=== PATIENT | female | born 1940 | race Caucasian/White ===

== ENCOUNTER 2017-11-29 12:28 | Inpatient (IN) ==
[2017-11-29] MEDS ORDERED: IOPAMIDOL 100 ML BOTTLE IV ONE (12:29)
[2017-11-29] MEDS ORDERED: HYDROmorphone 2 MG/ML VIAL IV PRN (12:42)
[2017-11-29] MEDS ORDERED: LACTATED RINGERS 1,000 ML IV ONE (12:42)
[2017-11-29] MEDS ORDERED: PROMETHAZINE 25 MG/ML VIAL IV ONE (12:42)
--- NOTE | 2017-11-29 12:45 | Emergency Department Note ---
Abdominal Pain HPI - General Chief Complaint: Abdominal Pain Stated Complaint: diffuse abdominal pain x 2.5 hours Time Seen by Provider: 11/29/17 12:38 Source: patient, EMS Mode of arrival: wheelchair Limitations: no limitations - History of Present Illness HPI Narrative: This patient had the sudden onset of diffuse abdominal pain 1 hour ago. She had a biopsy of her bladder last week and had a catheter in until this morning which she took before the onset of this pain. Perforated bladder now with leaking of urine is certainly a possibility. She does have associated nausea and vomiting. Pain is quite diffuse about the abdomen and she did have a bowel movement this morning. - Related Data Home Medications Medication Instructions Recorded Confirmed HYDROcodone/APAP 10/325MG [[place] 2 tab PO Q4 PRN 11/29/17 11/29/17 10-325Mg] Previous Rx's Medication Instructions Recorded albuterol sulfate 90 mcg/actuation 2 puff INHALATION Q6H PRN #1 each 08/17/17 breath activated powder inhaler vitamin B complex tablet 1 tab PO QDAY #1 tab 11/08/17 buspirone 15 mg tablet 15 mg PO BID #60 tab 11/09/17 diltiazem ER 120 mg 120 mg PO BID #60 cap 11/09/17 capsule,extended release 12 hr paroxetine 40 mg tablet 40 mg PO QDAY #30 tab 11/09/17 tamsulosin 0.4 mg capsule 0.4 mg PO QDAY #20 cap 11/25/17 Allergies Allergy/AdvReac Type Severity Reaction Status Date / Time codeine Allergy Unknown Unknown Verified 11/29/17 12:35 Review of Systems All systems ED: reviewed and negative except as stated. Abdominal Pain PMH - Past Medical History [facility] Narrative: Medical History (Last Reviewed 11/18/17 @ 10:39 by Anushka Florentino RN) Fibromyalgia (Acute) Back pain (Chronic) Thrush, oral (Acute) Urosepsis (Acute) Congestive heart failure (Acute) UTI (urinary tract infection) (Acute) Urinary tract infection (Acute) Osteopenia (Chronic) Inflammatory arthritis (Chronic) Chronic obstructive pulmonary disease (Chronic) Mass of parenchyma of lung (Chronic) Olecranon bursitis of right elbow (Resolved) Polyarthritis (Chronic) Vitamin D deficiency (Chronic 10/15/14) Tremor (Chronic 09/09/14) Sepsis (Chronic 11/19/14) Rheumatoid arthritis (Chronic 10/15/14) Osteoarthritis (Chronic) Postmenopausal related mood disorder (Chronic) Pain, joint, multiple sites (Chronic 09/09/14) Hypertension, essential (Chronic) Depression (Chronic) History of colonic polyps (Chronic) Chronic low back pain (Chronic 09/09/14) Asthma (Chronic) Generalized anxiety disorder (Chronic) Hypoxia (Acute) Diabetes mellitus, type II (Inactive) Past Surgical History (Last Reviewed 11/18/17 @ 10:39 by Anushka Florentino, SEJAL) History of repair of right rotator cuff (Chronic) History of hysterectomy (Chronic) History of bladder surgery (Chronic) Family History (Last Reviewed 11/18/17 @ 10:39 by Anushka Florentino, SEJAL) Father Alcohol abuse Sister Family history of malignant neoplasm of breast Mother Essential hypertension Cerebrovascular accident Medical history: Reports: arthritis, asthma, cancer (Bladder), COPD, DM, fibromyalgia, hypertension, osteoporosis, other (Tremor, lung mass) Psychiatric history: Reports: anxiety, depression - Social History Smoking status: Former smoker Alcohol use: Reports: Occasionally Drug use: Reports: none Physical Exam Limitations: no limitations General appearance: alert Head: atraumatic Eye: Present: normal appearance ENT: normal exam Neck: Present: normal inspection Chest: Present: normal inspection Respiratory: Present: normal lung sounds bilaterally Cardiovascular: Present: regular rate, normal rhythm, normal heart sounds Abdominal: Present: soft, tenderness, diminished bowel sounds. Absent: distention, guarding, rebound, rigidity Abdominal tenderness: Present: diffuse, moderate Neurological: Present: alert Psychiatric: Present: normal affect, normal mood Skin: Present: warm, dry, intact Course Vital Signs Temperature 97.2 F 11/29/17 12:30 Pulse Rate 81 11/29/17 12:30 Respiratory Rate 20 11/29/17 12:30 Blood Pressure 181/77 11/29/17 12:30 Pulse Oximetry (%) 88 L 11/29/17 12:30 Temperature 97.7 F 11/30/17 04:00 Pulse Rate 78 11/30/17 04:00 Respiratory Rate 12 11/30/17 04:00 Blood Pressure 156/78 11/30/17 04:00 Pulse Oximetry (%) 97 11/30/17 04:00 Abdominal Pain - MDM Narrative Medical decision making narrative: CT scan and lab work were unremarkable. I did discuss this case with Dr. Lezama who had nothing to offer. Dr. Akbar was kind enough to see the patient and admit her to the hospital. - Lab Data Lab results reviewed: Yes I reviewed the patient's lab results. Result diagrams: 11/30/17 04:49 11/30/17 04:49 Lab Results 11/29/17 11/29/17 11/29/17 Range/Units 12:55 12:55 12:55 WBC 14.7 H (4.5-11.0) K/mcL RBC 4.05 (4.00-5.20) M/mcL Hgb 11.9 L (12.0-15.0) g/dL Hct 36.4 (36.0-48.0) % MCV 89.8 (80.0-100.0) fL MCH 29.3 (26.0-34.0) pg MCHC 32.6 (31.0-36.0) g/dL RDW 15.9 H (11.5-14.5) % Plt Count 252 (140-440) K/mcL MPV 8.2 (7.4-10.4) fL Gran % 80.5 H (38.0-78.0) % Lymph % (Auto) 11.2 L (15.5-49.0) % Coal % (Auto) 5.0 (1.0-12.0) % Eos % (Auto) 3.2 (0.0-7.0) % Baso % (Auto) 0.1 (0.0-2.0) % Gran # 11.9 H (1.8-8.0) K/mcL Lymph # (Auto) 1.6 (1.5-4.8) K/mcL Coal # (Auto) 0.7 (0.1-0.9) K/mcL Eos # (Auto) 0.5 (0.0-0.7) K/mcL Baso # (Auto) 0 (0.0-0.3) K/mcL Sodium 139 (133-145) mmol/L Potassium 3.5 (3.3-5.1) mmol/L Chloride 100 (96-108) mmol/L Carbon Dioxide 28 (22-30) mmol/L Anion Gap 11.0 (8-16) BUN 17 (8-23) mg/dl Creatinine 0.9 (0.6-1.1) mg/dl GFR Calculation 61 Glucose 152 H (70-105) mg/dL Calcium 9.1 (8.6-10.4) mg/dl Total Bilirubin 0.3 (0.0-1.0) mg/dL AST 15 (0-37) U/l ALT 12 (0-40) U/l Alkaline Phosphatase 62 (39-117) U/L Troponin T < 0.01 (0-0.03) ng/ml NT-Pro-B Natriuret Pep (0-450) pg/ml Total Protein 7.1 (5.9-8.4) gm/dL Albumin 3.7 (3.2-5.2) gm/dL Globulin 3.4 (2.2-3.7) gm/dL Albumin/Globulin Ratio 1.1 (1.0-2.3) Lipase 21 (7-60) U/L Urine Color Urine Appearance Urine pH (5.0-9.0) Ur Specific [place] (1.000-1.035) Urine Protein (NEG) mg/dL Urine Glucose (UA) (NEG) mg/dL Urine Ketones (NEG) mg/dL Urine Occult Blood (<0.03) mg/dL Urine Nitrate (NEG) Urine Bilirubin (NEG) mg/dL Urine Urobilinogen (NEG) mg/dL Ur Leukocyte Esterase (NEG) /uL Urine RBC (0-1) /hpf Urine WBC (0-4) /hpf Ur Squamous Epith Cells (0-4) /hpf Urine Bacteria (0) /hpf Ur Culture Indicated? 11/29/17 11/29/17 Range/Units 12:55 14:15 WBC (4.5-11.0) K/mcL RBC (4.00-5.20) M/mcL Hgb (12.0-15.0) g/dL Hct (36.0-48.0) % MCV (80.0-100.0) fL MCH (26.0-34.0) pg MCHC (31.0-36.0) g/dL RDW (11.5-14.5) % Plt Count (140-440) K/mcL MPV (7.4-10.4) fL Gran % (38.0-78.0) % Lymph % (Auto) (15.5-49.0) % Coal % (Auto) (1.0-12.0) % Eos % (Auto) (0.0-7.0) % Baso % (Auto) (0.0-2.0) % Gran # (1.8-8.0) K/mcL Lymph # (Auto) (1.5-4.8) K/mcL Coal # (Auto) (0.1-0.9) K/mcL Eos # (Auto) (0.0-0.7) K/mcL Baso # (Auto) (0.0-0.3) K/mcL Sodium (133-145) mmol/L Potassium (3.3-5.1) mmol/L Chloride (96-108) mmol/L Carbon Dioxide (22-30) mmol/L Anion Gap (8-16) BUN (8-23) mg/dl Creatinine (0.6-1.1) mg/dl GFR Calculation Glucose (70-105) mg/dL Calcium (8.6-10.4) mg/dl Total Bilirubin (0.0-1.0) mg/dL AST (0-37) U/l ALT (0-40) U/l Alkaline Phosphatase (39-117) U/L Troponin T (0-0.03) ng/ml NT-Pro-B Natriuret Pep 341.3 (0-450) pg/ml Total Protein (5.9-8.4) gm/dL Albumin (3.2-5.2) gm/dL Globulin (2.2-3.7) gm/dL Albumin/Globulin Ratio (1.0-2.3) Lipase (7-60) U/L Urine Color Straw Urine Appearance Clear Urine pH 8.0 (5.0-9.0) Ur Specific [place] 1.018 (1.000-1.035) Urine Protein Neg (NEG) mg/dL Urine Glucose (UA) Negative (NEG) mg/dL Urine Ketones Neg (NEG) mg/dL Urine Occult Blood Neg (<0.03) mg/dL Urine Nitrate Neg (NEG) Urine Bilirubin Neg (NEG) mg/dL Urine Urobilinogen Neg (NEG) mg/dL Ur Leukocyte Esterase 75 A (NEG) /uL Urine RBC 5 H (0-1) /hpf Urine WBC 21 H (0-4) /hpf Ur Squamous Epith Cells < 1 (0-4) /hpf Urine Bacteria 0 (0) /hpf Ur Culture Indicated? Yes - Radiology Data Radiology results reviewed: Yes I reviewed the patient's radiology results. Disposition Pt seen by TELEPHONE DIRECTORY DISTRIBUTOR DRIVER/PA only: No Clinical Impression: Abdominal pain Disposition: Xfer As Inpt ([facility]) Condition: Fair
[2017-11-29] MEDS ORDERED: fentaNYL 100 MCG/2 ML VIAL IV PRN (13:02)
[2017-11-29 13:21] LABS: Basophils # (Auto) 0 K/mcL (0.0-0.3); Basophils % (Auto) 0.1 % (0.0-2.0); Eosinophils # (Auto) 0.5 K/mcL (0.0-0.7); Eosinophils % (Auto) 3.2 % (0.0-7.0); Granulocytes % (Auto) 80.5 % (38.0-78.0); Lymphocytes # (Auto) 1.6 K/mcL (1.5-4.8); Lymphocytes % (Auto) 11.2 % (15.5-49.0); Mean Cell Volume 89.8 fL (80.0-100.0); Mean Corpuscular HGB Conc 32.6 g/dL (31.0-36.0); Mean Corpuscular Hemoglobin 29.3 pg (26.0-34.0); Monocytes # (Auto) 0.7 K/mcL (0.1-0.9); Platelet Count 252 K/mcL (140-440); RBC 4.05 M/mcL (4.00-5.20); Red Cell Distribution Width 15.9 % (11.5-14.5)
[2017-11-29 13:41] LABS: ALT/SGPT 12 U/l (0-40); Albumin 3.7 gm/dL (3.2-5.2); Albumin/Globulin Ratio 1.1 (1.0-2.3); Alkaline Phosphatase 62 U/L (39-117); Blood Urea Nitrogen 17 mg/dl (8-23); Lipase 21 U/L (7-60)
--- NOTE | 2017-11-29 14:21 | Cat Scan Report ---
CLINICAL INFORMATION: , Pain. History of bladder carcinoma COMPARISON: 12/22/[address] TECHNIQUE: Following enteric contrast, 80 cc of Isovue-300 were injected intravenously, and 60 seconds later, 0.625 mm helical slices were obtained from the mid heart through the subtrochanteric regions. Following reconstruction, 2.5 mm sagittal, coronal and axial reformatted images were processed and reviewed at bone, lung and soft tissue windows. Five minutes later, 0.625 mm helical slices were obtained from the mid heart through the kidneys and viewed at soft tissue windows.The exam was performed using radiation dose optimization techniques including, but not limited to, automated exposure control, adjustment of the mA and/or kV according to patient size and use of iterative reconstruction technique. FINDINGS: Lung bases show chronic bronchitis and tubular bronchiectasis in the lower lobes. Moderate patchy interstitial and alveolar infiltrates are seen in the visualized lower lobes and inferior right middle lobe. These are new from the previous study may represent aspiration. There are no effusions. The visualized heart is mildly enlarged with very small pericardial effusion. Images through the abdomen show mild fatty change within the liver, but no focal hepatic lesions. The gallbladder and bile ducts, spleen, pancreas and both adrenal glands and aorta are normal in size, configuration and attenuation out focal lesion. Bilateral simple renal cysts are stable - both kidneys, upper collecting systems and ureters are otherwise normal. Images through the pelvis show the mass, previously arising from the left lateral wall of the urinary bladder, is now absent with only mild residual thickening of the bladder wall. Hysterectomy changes are noted. Small/moderate ascites is seen throughout the abdomen and pelvis. Small right inguinal hernia consisting of a portion of the cecum. Also small left inguinal hernia contains only minimal ascites. Sigmoid diverticulosis is noted. Several loops of small bowel in the left midabdomen and a straight thickening of the wall and plica circulares folds. This may artifactual related to underdistention, however. Bone windows show grade 1 L3-4 and L4-5 spondylolisthesis due to degenerative facet disease. Mild T11 compression fracture stable. Moderate T12 compression fractures new IMPRESSION: 1. The sessile mass, previously seen in the left lateral wall of the urinary bladder, is no longer apparent. There is only minimal focal fibrosis in this region. Presumably, this represents successfully treated bladder cancer. 2. Small/moderate ascites in the abdomen and pelvis - new from previous CT. Etiology uncertain. 3. Small bilateral inguinal hernias. The right contains a small portion of the cecum - no evidence of incarceration 4. Moderate infiltrates in both lower lobes with associated tubular bronchiectasis. Suspect aspiration. 5. Possible thickening the wall and plica circulares folds within a few bowel loops in the left midabdomen. This could also merely be artifact of underdistention. If more definitive evaluation is required consider CT enterography 6. Moderate T12 compression fracture new. Mild T11 compression fracture old and unchanged Interpreted and Authenticated by: Sabino Olmos 11/29/17
[2017-11-29 15:05] LABS: Appearance,Urine CLEAR; Bacteria,Urine 0 /hpf (0); Bilirubin,Urine NEG (NEG); Color,Urine STRAW; Glucose,Urine (UA) NEGATIVE (NEG); Leukocyte Esterase,Urine 75 /uL (NEG); Protein,Urine NEG (NEG); Specific Gravity,Urine 1.018 (1.000-1.035); Urine Blood NEG mg/dL (<0.03); Urine RBC 5 /hpf (0-1); Urine Squamous Epithelial Cell < 1 /hpf (0-4); Urine WBC 21 /hpf (0-4); Urobilinogen,Urine NEG (NEG)
[2017-11-29] MEDS ORDERED: ZOLPIDEM 5 MG TABLET PO PRN (16:34)
[2017-11-29] MEDS ORDERED: ONDANSETRON 4 MG/2 ML VIAL IV PRN (16:34)
[2017-11-29] MEDS ORDERED: ACETAMINOPHEN 325 MG TABLET PO PRN (16:34)
[2017-11-29] MEDS ORDERED: cefTRIAXone 1 GM in DEXTROSE 5% IN WATER 50 ML IV SCH (16:45)
--- NOTE | 2017-11-29 16:54 | General Surg History&Physical ---
History of Present Illness Patient information: Note initiated : 11/29/17 at 4:50 pm Service Date, if different from initiated Date: [] Patient: Sera Gore a 77 y/o F admitted on for diffuse abdominal pain x 2.5 hours. Chief Complaint: [abdominal pain] HPI: Ms. Gore is a 77 year old F who was admitted with diffuse abdominal pain. She also has mild leukocytosis. The patient is status post transurethral resection of the bladder tumor november 11. She had a Oscar catheter which was discontinued this morning. About 30 minutes after the Oscar catheter was discontinued she developed pain across her upper abdomen. She developed nausea but no vomiting. The pain then moved to her lower abdomen. She has no history of other GI or biliary or pancreatic problems. She states that after she pulled the catheter she did not void. She was catheterized in the emergency room and 400 cc of urine was removed. She complains of chills and sweats. Her white blood count is 14,700. CT of the abdomen shows a moderate amount of free fluid in the peritoneal cavity with the largest amount in the pelvis and at the base of the small bowel mesentery but also up along the gutters and over the liver. There are no other significant findings in the small bowel colon or mesentery. With the history given it is suggested that she have a bladder leak and after the Oscar catheter was removed she spilled urine and her peritoneal cavity which caused her symptoms. There is no other findings to explain this clear fluid which has the texture of water. She is admitted and will be started on antibiotics. Oscar catheter will be continued. If she remains stable she will continue with Oscar catheter. I will notify Dr. Sol of her admission tomorrow.. Review of Systems - Constitutional lethargy, night sweats, weakness - EENT Nose, mouth and throat: abnormal hearing, no disequilibrium, no headache(s), no vertigo - Cardiovascular dyspnea on exertion, no chest pain at rest, no leg edema, no pedal edema, no rapid heart rate, no syncope - Respiratory dyspnea on exertion, wheezing - Gastrointestinal abdominal pain, bloating, nausea, no vomiting - Genitourinary Genitourinary: difficulty urinating, pelvic pain, urinary hesitancy - Musculoskeletal abnormal gait, arthralgias, stiffness, no neck pain, no tingling - Integumentary no new lesions, no non-healing lesions, no pruritus, no rash - Neurological confusion, tremor(s), no dizziness, no headache(s) - Psychiatric anxiety, confusion, depression - Endocrine fatigue - Hematologic/Lymphatic no easy bleeding, no easy bruising, no lymphadenopathy - Allergic/Immunologic no tongue swelling, no throat swelling, no uticaria, no wheezing, no lip swelling Past History Past medical history: 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 Chronic obstructive lung disease Diabetes by history Hypertension Anxiety with depression Past surgical history: TURBT Abdominal hysterectomy Right rotator cuff repair Past family history: Mother age 72 due to alcoholism Father age 46 due to alcoholism Sister with cancer of the breast Hypertension and stroke Past social history: Lives independently [id number] tobacco use stopped 4 years ago Occasional alcohol use Denies drug use Medications and Allergies Home Medications Medication Instructions Recorded Confirmed Type albuterol sulfate 90 mcg/actuation 2 puff INHALATION Q6H PRN #1 each 08/17/17 Rx breath activated powder inhaler vitamin B complex tablet 1 tab PO QDAY #1 tab 11/08/17 11/22/17 Rx buspirone 15 mg tablet 15 mg PO BID #60 tab 11/09/17 11/22/17 Rx diltiazem ER 120 mg 120 mg PO BID #60 cap 11/09/17 11/22/17 Rx capsule,extended release 12 hr paroxetine 40 mg tablet 40 mg PO QDAY #30 tab 11/09/17 11/22/17 Rx hydrocodone 10 mg-acetaminophen 2 tab PO Q6H PRN #180 tab 11/22/17 Rx 325 mg tablet tamsulosin 0.4 mg capsule 0.4 mg PO QDAY #20 cap 11/25/17 Rx Allergies Allergy/AdvReac Type Severity Reaction Status Date / Time codeine Allergy Unknown Unknown Verified 11/29/17 12:35 Exam Temp Pulse Resp BP Pulse Ox 97.2 F 87 20 139/61 97 11/29/17 12:30 11/29/17 16:15 11/29/17 12:30 11/29/17 16:15 11/29/17 16:15 - General physical appearance well developed, well nourished, moderate distress, moderate pain, chronically ill - Eyes PERRL, normal ocular movement - ENT normal pinna, normal nares, normal mucosa, no hearing loss, no congestion, decreased hearing (Major bilateral neurosensory hearing loss) - Head Head exam IM: Present: atraumatic, normal inspection, normocephalic - Neck no masses, no bruits, trachea midline, no lymphadectomy, no venous distension - Cardiovascular Cardiovascular exam IM: Present: normal rate and rhythm, RRR, +S1, +S2. Absent : JVD, tachycardia - Respiratory normal expansion, normal respiratory effort, other ( course tubular breath sounds bilaterally with coarse wheezes and rhonchi) - Abdomen Abdomen: Present: soft, tender ( diffusely abdominal tenderness throughout more prominent in the right upper quadrant and hypogastric), bowel sounds Hernia: Present: none - Genitourinary Present: normal external genitalia - Integumentary Present: no rash, no growths, no abnormal pigmentation - Neurologic Present: normal coordination, normal sensation - Musculoskeletal Present: normal gait, normal posture - Psychiatric Present: oriented to time, oriented to person, oriented to place, speech is normal, memory intact Assessment and Plan (1) Abdominal pain Status: Acute (2) Acute urinary retention Oscar to dependent drainage Cover Rocephin 1 g IV daily Possible cystogram after discussion with Dr. Sol Status: Acute (3) Malignant neoplasm of posterior wall of bladder Status: Resolved (4) Chronic obstructive pulmonary disease Will continue on home medication after verifying dosage Status: Chronic Qualifiers: COPD type: emphysema Emphysema type: unspecified Qualified Code(s): J43.9 - Emphysema, unspecified (5) Depression Will continue on home medication Status: Chronic Qualifiers: Depression Type: unspecified Qualified Code(s): F32.9 - Major depressive disorder, single episode, unspecified (6) Hypertension, essential Status: Chronic
[2017-11-29] MEDS: cefTRIAXone 1 GM VIAL IV SCH (18:02)
[2017-11-29] MEDS: 0.9 % SODIUM CHLORIDE 1,000 ML IV SCH (18:02)
[2017-11-29] MEDS ORDERED: ALBUTEROL SULFATE 1 PUFF INHALER INH PRN (18:55)
[2017-11-29] MEDS: HYDROcodone/APAP 10/325MG TABLET PO PRN (20:28)
[2017-11-29] MEDS: DILTIAZEM 120 MG CAP.XL.24H PO SCH (20:28)
[2017-11-29] MEDS: busPIRone 15 MG TABLET PO SCH (20:28)
[2017-11-29] MEDS: DOCUSATE SODIUM 100 MG CAPSULE PO SCH (22:21)
[2017-11-29] MEDS: 0.9 % SODIUM CHLORIDE 10 ML SYRINGE IV SCH (22:21)
[2017-11-29] MEDS ORDERED: PROMETHAZINE 25 MG/ML VIAL ONE (22:26)
[2017-11-29] MEDS ORDERED: MEPERIDINE 50 MG/ML INJECTION ONE (22:26)
[2017-11-30] MEDS: 0.9 % SODIUM CHLORIDE 10 ML SYRINGE IV SCH ×3 (05:25→20:00)
[2017-11-30 05:40] LABS: Basophils # (Auto) 0 K/mcL (0.0-0.3); Basophils % (Auto) 0.3 % (0.0-2.0); Eosinophils # (Auto) 0.5 K/mcL (0.0-0.7); Eosinophils % (Auto) 3.6 % (0.0-7.0); Granulocytes % (Auto) 76.2 % (38.0-78.0); Lymphocytes # (Auto) 1.7 K/mcL (1.5-4.8); Lymphocytes % (Auto) 12.5 % (15.5-49.0); Mean Cell Volume 89.9 fL (80.0-100.0); Mean Corpuscular HGB Conc 33.4 g/dL (31.0-36.0); Monocytes % (Auto) 7.4 % (1.0-12.0); Platelet Count 264 K/mcL (140-440); RBC 3.77 M/mcL (4.00-5.20); Red Cell Distribution Width 15.5 % (11.5-14.5)
[2017-11-30 06:01] LABS: ALT/SGPT 11 U/l (0-40); Albumin 3.4 gm/dL (3.2-5.2); Albumin/Globulin Ratio 1.1 (1.0-2.3); Alkaline Phosphatase 59 U/L (39-117); Bilirubin,Direct < 0.2 mg/dL (0.0-0.3); Blood Urea Nitrogen 13 mg/dl (8-23); Gamma Glutamyl Transpeptidase 22 U/L (5-36); Uric Acid 4.8 mg/dL (2.5-8.0)
[2017-11-30] MEDS: HYDROcodone/APAP 10/325MG TABLET PO PRN ×3 (07:18→19:59)
[2017-11-30] MEDS: PANTOPRAZOLE 40 MG TABLET PO SCH (07:19)
[2017-11-30] MEDS ORDERED: ALBUTEROL SULFATE INHALATION PRN (07:27)
[2017-11-30 07:42] LABS: Erythrocyte Sedimentation Rate 34 mm/hr (0-20)
--- NOTE | 2017-11-30 08:49 | XRay Report ---
CLINICAL INFORMATION: Follow up infiltrate COMPARISON: 09/02/2017 FINDINGS: Mild cardiomegaly is unchanged. Mediastinum and pulmonary vessels are normal. Severe COPD changes again noted. Right basilar infiltrate has almost cleared. A moderate patchy infiltrate has developed in the left base. Scarring in the right midlung unchanged IMPRESSION: Moderate patchy infiltrate developing in the left base. Incompletely clearance of right basilar infiltrate since the comparison x-ray three months ago. Severe COPD Interpreted and Authenticated by: Sabino Olmos 11/30/17
[2017-11-30] MEDS ORDERED: TAMSULOSIN 0.4 MG CAPSULE PO SCH (09:00)
[2017-11-30] MEDS ORDERED: VITAMIN B COMPLEX PO SCH (09:00)
[2017-11-30] MEDS ORDERED: PAROXETINE HCL 40 MG PO SCH (09:00)
[2017-11-30] MEDS ORDERED: busPIRone 10 MG TABLET PO SCH (09:00)
[2017-11-30] MEDS ORDERED: DILTIAZEM 120 MG PO SCH (09:00)
[2017-11-30] MEDS: ENOXAPARIN 30 MG/0.3 ML SYRINGE SQ SCH (10:40)
[2017-11-30] MEDS: busPIRone 15 MG TABLET PO SCH ×2 (10:41→19:59)
[2017-11-30] MEDS: DOCUSATE SODIUM 100 MG CAPSULE PO SCH ×2 (10:41→20:00)
[2017-11-30] MEDS: VITAMIN B COMPLEX 1 CAPSULE PO SCH (10:41)
[2017-11-30] MEDS: PARoxetine 20 MG TABLET PO SCH (10:42)
[2017-11-30] MEDS: TAMSULOSIN 0.4 MG CAPSULE PO SCH (10:42)
[2017-11-30] MEDS: DILTIAZEM 120 MG CAP.XL.24H PO SCH ×2 (10:42→19:59)
[2017-11-30] MEDS: MEPERIDINE 50 MG/ML INJECTION IV PRN ×2 (10:43→22:06)
[2017-11-30] MEDS: PROMETHAZINE 25 MG/ML VIAL IV PRN ×2 (10:59→22:07)
[2017-11-30] MEDS: cefTRIAXone 1 GM VIAL IV SCH (11:06)
--- NOTE | 2017-11-30 11:34 | General Surgery Progress Note ---
Subjective Patient reports: feels better, pain is less, tolerating liquids well, flatus, nausea, afebrile Narrative: Note initiated : 11/30/17 at 11:31 am Service Date, if different from initiated Date: [] Patient: Sera Gore 77 y/o F admitted on 11/29/17 for Diffuse Abdominal Pain x 2.5 hours. Chief Complaint: [patient states that she feels better. She still has pain but it is more hypogastric and suprapubic. The major portion of her upper abdominal pain has decreased. She denies nausea at this time. Her urine remains clear.. Preliminary cultures are negative for growth from the urine. Discussed her situation with Dr. Sol and he suggests continuing the Oscar catheter for 2 weeks and he will follow her as an outpatient. She is advised that I will continue IV antibiotics until the final cultures are available and if they are negative she can be discharged home at that time.] Objective Temp Pulse Resp BP Pulse Ox 98.9 F 78 20 152/71 95 11/30/17 07:14 11/30/17 04:00 11/30/17 07:14 11/30/17 07:14 11/30/17 07:14 - Additional Data Intake & Output - Last 24 hours: Intake & Output 11/28/17 11/29/17 11/30/17 12/01/17 05:59 05:59 05:59 05:59 Intake Total 1100 / 1100 Output Total 2750 / 2750 Balance -1650 / -1650 Weight 130 lb 8 oz - General physical appearance moderate pain, chronically ill - Eyes PERRL, normal ocular movement - ENT normal pinna, normal nares, normal mucosa, no hearing loss, no congestion - Neck no masses, no bruits, trachea midline, no lymphadectomy, no venous distension - Respiratory normal expansion, normal respiratory effort, other (vestibular breath sounds bilaterally) - Cardiovascular Cardiovascular exam: Present: normal rate and rhythm, RRR, +S1, +S2. Absent: JVD, tachycardia - Abdomen tender ( hypogastric suprapubic tenderness with guarding; active bowel sounds), bowel sounds (present) - Integumentary no rash, no growths, no abnormal pigmentation - Neurologic normal coordination, normal sensation - Psychiatric other ( patient is intermittently confused but she is easily reoriented) - Labs 11/30/17 04:49 11/30/17 04:49 Diabetes panel 11/29/17 11/30/17 Range/Units 12:55 04:49 Sodium 139 142 (133-145) mmol/L Potassium 3.5 4.0 (3.3-5.1) mmol/L Chloride 100 102 (96-108) mmol/L Carbon Dioxide 28 29 (22-30) mmol/L BUN 17 13 (8-23) mg/dl Creatinine 0.9 0.8 (0.6-1.1) mg/dl Glucose 152 H 101 (70-105) mg/dL Calcium 9.1 8.9 (8.6-10.4) mg/dl AST 15 13 (0-37) U/l ALT 12 11 (0-40) U/l Alkaline Phosphatase 62 59 (39-117) U/L Total Protein 7.1 6.4 (5.9-8.4) gm/dL Albumin 3.7 3.4 (3.2-5.2) gm/dL Triglycerides 125 (<150) mg/dl Calcium panel 11/29/17 11/30/17 Range/Units 12:55 04:49 Calcium 9.1 8.9 (8.6-10.4) mg/dl Phosphorus 3.1 (2.7-4.5) mg/dL Albumin 3.7 3.4 (3.2-5.2) gm/dL Pituitary panel 11/29/17 11/30/17 Range/Units 12:55 04:49 Sodium 139 142 (133-145) mmol/L Potassium 3.5 4.0 (3.3-5.1) mmol/L Chloride 100 102 (96-108) mmol/L Carbon Dioxide 28 29 (22-30) mmol/L BUN 17 13 (8-23) mg/dl Creatinine 0.9 0.8 (0.6-1.1) mg/dl Glucose 152 H 101 (70-105) mg/dL Calcium 9.1 8.9 (8.6-10.4) mg/dl Adrenal panel 11/29/17 11/30/17 Range/Units 12:55 04:49 Sodium 139 142 (133-145) mmol/L Potassium 3.5 4.0 (3.3-5.1) mmol/L Chloride 100 102 (96-108) mmol/L Carbon Dioxide 28 29 (22-30) mmol/L BUN 17 13 (8-23) mg/dl Creatinine 0.9 0.8 (0.6-1.1) mg/dl Glucose 152 H 101 (70-105) mg/dL Calcium 9.1 8.9 (8.6-10.4) mg/dl Total Bilirubin 0.3 0.6 (0.0-1.0) mg/dL AST 15 13 (0-37) U/l ALT 12 11 (0-40) U/l Alkaline Phosphatase 62 59 (39-117) U/L Total Protein 7.1 6.4 (5.9-8.4) gm/dL Albumin 3.7 3.4 (3.2-5.2) gm/dL Assessment and Plan (1) Abdominal pain Status: Acute Assessment and plan: We'll continue Oscar catheter decompression of the bladder. No further intervention is indicated at this time Current Visit: Yes (2) Acute urinary retention Status: Acute Assessment and plan: We will do long-term Oscar catheter decompression of the bladder Current Visit: No (3) Malignant neoplasm of posterior wall of bladder Status: Resolved Current Visit: No (4) Chronic obstructive pulmonary disease Status: Chronic Current Visit: No (5) Depression Status: Chronic Current Visit: No (6) Hypertension, essential Status: Chronic Current Visit: No - Time Spent With Patient Total time spent is greater than 50% in coordination of care (as documented) at patient's floor/unit and/or counseling patient:
[2017-11-30] MEDS: 0.9 % SODIUM CHLORIDE 1,000 ML IV SCH (14:01)
[2017-12-01] MEDS: 0.9 % SODIUM CHLORIDE 10 ML SYRINGE IV SCH ×3 (05:11→20:37)
[2017-12-01 05:39] LABS: Basophils # (Auto) 0.1 K/mcL (0.0-0.3); Basophils % (Auto) 0.7 % (0.0-2.0); Eosinophils # (Auto) 0.8 K/mcL (0.0-0.7); Eosinophils % (Auto) 10.1 % (0.0-7.0); Granulocytes % (Auto) 56.4 % (38.0-78.0); Lymphocytes # (Auto) 1.9 K/mcL (1.5-4.8); Lymphocytes % (Auto) 24.1 % (15.5-49.0); Mean Cell Volume 90.1 fL (80.0-100.0); Mean Corpuscular HGB Conc 32.7 g/dL (31.0-36.0); Mean Corpuscular Hemoglobin 29.5 pg (26.0-34.0); Monocytes # (Auto) 0.7 K/mcL (0.1-0.9); Monocytes % (Auto) 8.7 % (1.0-12.0); Platelet Count 251 K/mcL (140-440); RBC 3.74 M/mcL (4.00-5.20); Red Cell Distribution Width 15.3 % (11.5-14.5)
[2017-12-01 06:25] LABS: ALT/SGPT 9 U/l (0-40); Albumin 3.3 gm/dL (3.2-5.2); Alkaline Phosphatase 58 U/L (39-117); Bilirubin,Direct < 0.2 mg/dL (0.0-0.3); Blood Urea Nitrogen 11 mg/dl (8-23); Gamma Glutamyl Transpeptidase 23 U/L (5-36); Uric Acid 4.7 mg/dL (2.5-8.0)
[2017-12-01] MEDS: PANTOPRAZOLE 40 MG TABLET PO SCH (08:12)
[2017-12-01] MEDS: PARoxetine 20 MG TABLET PO SCH (10:10)
[2017-12-01] MEDS: VITAMIN B COMPLEX 1 CAPSULE PO SCH (10:10)
[2017-12-01] MEDS: DOCUSATE SODIUM 100 MG CAPSULE PO SCH ×2 (10:10→20:37)
[2017-12-01] MEDS: TAMSULOSIN 0.4 MG CAPSULE PO SCH (10:11)
[2017-12-01] MEDS: DILTIAZEM 120 MG CAP.XL.24H PO SCH ×2 (10:11→20:37)
[2017-12-01] MEDS: busPIRone 15 MG TABLET PO SCH ×2 (10:11→20:37)
[2017-12-01] MEDS: ENOXAPARIN 30 MG/0.3 ML SYRINGE SQ SCH (10:11)
[2017-12-01] MEDS: HYDROcodone/APAP 10/325MG TABLET PO PRN ×3 (11:00→20:38)
[2017-12-01] MEDS: cefTRIAXone 1 GM VIAL IV SCH (12:55)
[2017-12-01] MEDS: 0.9 % SODIUM CHLORIDE 1,000 ML IV SCH (13:26)
--- NOTE | 2017-12-01 16:32 | General Surgery Progress Note ---
Subjective Patient reports: still having pain, pain is less, bowel movement, afebrile Narrative: Note initiated : 12/01/17 at 4:31 pm Service Date, if different from initiated Date: [] Patient: Sera Gore 77 y/o F admitted on 11/29/17 for Diffuse Abdominal Pain x 2.5 hours. Chief Complaint: [patient is slowly improving. She asked for more solid food. Her urine remains clear. She remains afebrile. White blood count is down to 7.9.] Objective Temp Pulse Resp BP Pulse Ox 97.8 F 79 16 169/75 93 12/01/17 08:00 12/01/17 04:00 12/01/17 08:00 12/01/17 08:00 12/01/17 08:00 - Additional Data Intake & Output - Last 24 hours: Intake & Output 11/29/17 11/30/17 12/01/17 12/02/17 05:59 05:59 05:59 05:59 Intake Total 1100 / 1100 2229 / 2229 1000 / 1000 Output Total 2750 / 2750 3300 / 3300 Balance -1650 / -1650 -1071 / -1071 1000 / 1000 Weight 130 lb 8 oz 131 lb 131 lb - General physical appearance well developed, well nourished, moderate distress, moderate pain - Eyes PERRL - ENT decreased hearing - Neck no masses, no bruits, trachea midline, no lymphadectomy, no venous distension - Respiratory other (course tubular breath sounds bilaterally) - Cardiovascular Cardiovascular exam: Present: normal rate and rhythm, RRR, +S1, +S2. Absent: JVD - Abdomen soft, tender ( moderate tenderness in periumbilical area and hypogastrium; good active bowel sounds) - Integumentary no rash, no growths, no abnormal pigmentation - Neurologic normal coordination, normal sensation - Musculoskeletal normal gait, normal posture - Psychiatric oriented to time, oriented to person, oriented to place, speech is normal, memory intact - Labs 12/02/17 04:44 12/02/17 04:44 Diabetes panel 12/01/17 Range/Units 04:22 Sodium 140 (133-145) mmol/L Potassium 4.3 (3.3-5.1) mmol/L Chloride 103 (96-108) mmol/L Carbon Dioxide 27 (22-30) mmol/L BUN 11 (8-23) mg/dl Creatinine 0.7 (0.6-1.1) mg/dl Glucose 91 (70-105) mg/dL Calcium 9.0 (8.6-10.4) mg/dl AST 13 (0-37) U/l ALT 9 (0-40) U/l Alkaline Phosphatase 58 (39-117) U/L Total Protein 6.5 (5.9-8.4) gm/dL Albumin 3.3 (3.2-5.2) gm/dL Triglycerides 96 (<150) mg/dl Calcium panel 12/01/17 Range/Units 04:22 Calcium 9.0 (8.6-10.4) mg/dl Phosphorus 3.2 (2.7-4.5) mg/dL Albumin 3.3 (3.2-5.2) gm/dL Pituitary panel 12/01/17 Range/Units 04:22 Sodium 140 (133-145) mmol/L Potassium 4.3 (3.3-5.1) mmol/L Chloride 103 (96-108) mmol/L Carbon Dioxide 27 (22-30) mmol/L BUN 11 (8-23) mg/dl Creatinine 0.7 (0.6-1.1) mg/dl Glucose 91 (70-105) mg/dL Calcium 9.0 (8.6-10.4) mg/dl Adrenal panel 12/01/17 Range/Units 04:22 Sodium 140 (133-145) mmol/L Potassium 4.3 (3.3-5.1) mmol/L Chloride 103 (96-108) mmol/L Carbon Dioxide 27 (22-30) mmol/L BUN 11 (8-23) mg/dl Creatinine 0.7 (0.6-1.1) mg/dl Glucose 91 (70-105) mg/dL Calcium 9.0 (8.6-10.4) mg/dl Total Bilirubin 0.4 (0.0-1.0) mg/dL AST 13 (0-37) U/l ALT 9 (0-40) U/l Alkaline Phosphatase 58 (39-117) U/L Total Protein 6.5 (5.9-8.4) gm/dL Albumin 3.3 (3.2-5.2) gm/dL Assessment and Plan (1) Abdominal pain Status: Acute Assessment and plan: We'll continue Oscar catheter decompression of the bladder. No further intervention is indicated at this time Current Visit: Yes (2) Acute urinary retention Status: Acute Assessment and plan: We will do long-term Oscar catheter decompression of the bladder Current Visit: No (3) Chronic obstructive pulmonary disease Status: Chronic Current Visit: No (4) Depression Status: Chronic Current Visit: No (5) Hypertension, essential Status: Chronic Current Visit: No - Time Spent With Patient Total time spent is greater than 50% in coordination of care (as documented) at patient's floor/unit and/or counseling patient:
[2017-12-02 06:54] LABS: Basophils # (Auto) 0.1 K/mcL (0.0-0.3); Basophils % (Auto) 0.8 % (0.0-2.0); Eosinophils # (Auto) 0.8 K/mcL (0.0-0.7); Eosinophils % (Auto) 7.9 % (0.0-7.0); Granulocytes % (Auto) 60.3 % (38.0-78.0); Lymphocytes # (Auto) 2.1 K/mcL (1.5-4.8); Lymphocytes % (Auto) 21.7 % (15.5-49.0); Mean Cell Volume 90.2 fL (80.0-100.0); Mean Corpuscular HGB Conc 33.4 g/dL (31.0-36.0); Mean Corpuscular Hemoglobin 30.1 pg (26.0-34.0); Monocytes # (Auto) 0.9 K/mcL (0.1-0.9); Monocytes % (Auto) 9.3 % (1.0-12.0); Platelet Count 289 K/mcL (140-440); RBC 3.97 M/mcL (4.00-5.20); Red Cell Distribution Width 15.4 % (11.5-14.5)
[2017-12-02 07:14] LABS: ALT/SGPT 9 U/l (0-40); Albumin 3.4 gm/dL (3.2-5.2); Albumin/Globulin Ratio 0.9 (1.0-2.3); Alkaline Phosphatase 63 U/L (39-117); Bilirubin,Direct < 0.2 mg/dL (0.0-0.3); Blood Urea Nitrogen 12 mg/dl (8-23); Gamma Glutamyl Transpeptidase 26 U/L (5-36); Uric Acid 4.9 mg/dL (2.5-8.0)
[2017-12-02] MEDS: PANTOPRAZOLE 40 MG TABLET PO SCH (07:48)
[2017-12-02] MEDS: 0.9 % SODIUM CHLORIDE 10 ML SYRINGE IV SCH ×2 (07:49→14:31)
[2017-12-02] MEDS: PARoxetine 20 MG TABLET PO SCH (09:07)
[2017-12-02] MEDS: busPIRone 15 MG TABLET PO SCH (09:07)
[2017-12-02] MEDS: ENOXAPARIN 30 MG/0.3 ML SYRINGE SQ SCH (09:07)
[2017-12-02] MEDS: DILTIAZEM 120 MG CAP.XL.24H PO SCH (09:07)
[2017-12-02] MEDS: TAMSULOSIN 0.4 MG CAPSULE PO SCH (09:08)
[2017-12-02] MEDS: VITAMIN B COMPLEX 1 CAPSULE PO SCH (09:08)
[2017-12-02] MEDS: DOCUSATE SODIUM 100 MG CAPSULE PO SCH (09:08)
[2017-12-02] MEDS: HYDROcodone/APAP 10/325MG TABLET PO PRN (09:25)
[2017-12-02] MEDS: cefTRIAXone 1 GM VIAL IV SCH (10:16)
--- NOTE | 2017-12-02 14:32 | Discharge Summary ---
Providers - Providers Patient information: Note initiated : 12/02/17 at 2:28 pm Service Date, if different from initiated Date: [] Patient: Sera Gore 77 y/o F admitted on 11/29/17 for Diffuse Abdominal Pain x 2.5 hours. Chief Complaint: [] Date of admission: 11/29/17 Discharge date: 12/02/17 Attending physician: Coco Akbar Hospitalization Hospital course: 77-year-old female admitted with intraperitoneal bladder leak. The patient is status post TURBT on november 11. She was advised to remove the Jonas catheter on 29 November. After removal of the catheter about 30-45 minutes later the patient had abdominal pain in the upper abdomen and spread along the flanks and down into her pelvis.. The pain became severe and she developed nausea. She finally was seen in the emergency room where she was noted to have a tender abdomen with white blood count of 14,700.. CT of the abdomen was done and this showed free fluid in the pelvis, at the base of the small bowel mesentery, over the liver and over the spleen. Jonas catheter was placed and she drained 400 cc of urine. The patient has had a long time difficulty with voiding and has had periods of urinary retention. It was felt that she had a weakness in the wall of her bladder in the area of the TURBT. After the catheter was removed she had bladder distention and free rupture of this area into the peritoneal cavity. She was admitted and continued on Jonas catheter decompression of the bladder. She was started on antibiotics and urine cultures were obtained. Urine cultures were negative. Her abdominal discomfort has improved and is now primarily confined to the hypogastrium. Upper abdominal tenderness has resolved. Her white blood count has decreased to 9.6. The patient is clinically stable and is tolerating a diet. I discussed her situation with Dr. Sol and rather than do a cystogram it is decided that we would just decompress her bladder for 2 more weeks to allow healing and then do a cystogram prior to removal of the catheter. She is clinically stable at this time and is discharged home in stable improved condition. Discharge diagnosis: bladder perforation status post TURBT Secondary discharge diagnosis: Acute urinary retention contributing to bladder perforation Chemical peritonitis related to free spillage of urine in the peritoneal cavity. Reason for admission: acute abdominal pain with leukocytosis Procedures: none Pertinent studies/significant findings: CT of abdomen and pelvis with contrast Complications: None Exam Temp Pulse Resp BP Pulse Ox 97.6 F 76 16 178/75 91 12/02/17 06:44 12/02/17 07:54 12/02/17 06:44 12/02/17 06:44 12/02/17 06:44 - General physical appearance well developed, well nourished, moderate distress, moderate pain, chronically ill - Eyes PERRL, normal ocular movement - ENT normal pinna, normal nares, normal mucosa, no congestion, decreased hearing ( Major decrease in hearing bilaterally) - Head Head exam IM: Present: atraumatic, normocephalic - Neck no masses, no bruits, trachea midline, no lymphadectomy, no venous distension - Cardiovascular Cardiovascular exam IM: Present: normal rate and rhythm, irregular rhythm, +S1, +S2. Absent: JVD - Respiratory normal expansion, normal respiratory effort, other ( coarse tubular breath sounds bilaterally) - Abdomen Abdomen: Present: soft, tender ( moderate tenderness and hypogastrium without mass or guarding), bowel sounds Hernia: Present: none - Genitourinary Present: normal external genitalia, other ( indwelling Jonas catheter) - Integumentary Present: no rash, no growths, no abnormal pigmentation - Neurologic Present: normal coordination, normal sensation - Musculoskeletal Present: normal gait, normal posture - Psychiatric Present: oriented to time, oriented to person, oriented to place, speech is normal, memory intact Discharge Plan - Patient/Caregiver Discharge Instructions Activity: increase activity as tolerated Diet: Regular Diet Additional Instructions: Continue Jonas catheter to dependent drainage for the next 2 weeks Call for an appointment to see Dr. Sol in 2 weeks Prescriptions: RX: Ciprofloxacin [Cipro] 500 mg PO BID #14 tab - Follow up Plan Follow up with: Tavo Aguilar MD [Primary Care Provider] - Disposition: Home, Self-Care Prognosis: Good Rehab Potential: Good I certify that the patient requires SNF services.: No Overall status at discharge: patient is not back to baseline Pending Studies Resuscitation Status Full Code Diet GI Soft/Transitional Start Valery Dec 01 1632 Hydrocodone Bitart/Acetaminophen ([place]st 10/325mg) 2 tab PO Q4HP PRN PRN Reason: PAIN LEVEL 3-6 Last Admin: 12/02/17 09:25 Dose: 2 tab Admin: 12/01/17 20:38 Dose: 2 tab Admin: 12/01/17 17:15 Dose: 2 tab Admin: 12/01/17 11:00 Dose: 2 tab Admin: 11/30/17 19:59 Dose: 2 tab Admin: 11/30/17 16:33 Dose: 2 tab Admin: 11/30/17 07:18 Dose: 2 tab Admin: 11/29/17 20:28 Dose: 2 tab Buspirone HCl (Buspar) 15 mg PO BID [facility] Last Admin: 12/02/17 09:07 Dose: 15 mg Admin: 12/01/17 20:37 Dose: 15 mg Admin: 12/01/17 10:11 Dose: 15 mg Admin: 11/30/17 19:59 Dose: 15 mg Admin: 11/30/17 10:41 Dose: 15 mg Admin: 11/29/17 20:28 Dose: 15 mg Ceftriaxone Sodium (Rocephin) 1 gm IV Q24H [facility] Last Admin: 12/02/17 10:16 Dose: 1 gm Admin: 12/01/17 12:55 Dose: 1 gm Admin: 11/30/17 11:06 Dose: 1 gm Admin: 11/29/17 18:02 Dose: 1 gm Diltiazem HCl (Cardizem Cd) 120 mg PO BID [facility] Last Admin: 12/02/17 09:07 Dose: 120 mg Admin: 12/01/17 20:37 Dose: 120 mg Admin: 12/01/17 10:11 Dose: 120 mg Admin: 11/30/17 19:59 Dose: 120 mg Admin: 11/30/17 10:42 Dose: 120 mg Admin: 11/29/17 20:28 Dose: 120 mg Docusate Sodium (Colace) 100 mg PO BID [facility] Last Admin: 12/02/17 09:08 Dose: 100 mg Admin: 12/01/17 20:37 Dose: 100 mg Admin: 12/01/17 10:10 Dose: 100 mg Admin: 11/30/17 20:00 Dose: Not Given Admin: 11/30/17 10:41 Dose: 100 mg Admin: 11/29/17 22:21 Dose: Not Given Enoxaparin Sodium (Lovenox) 30 mg SQ DAILY [facility] Last Admin: 12/02/17 09:07 Dose: 30 mg Admin: 12/01/17 10:11 Dose: 30 mg Admin: 11/30/17 10:40 Dose: 30 mg Hydromorphone HCl (Dilaudid) 0.5 mg IV Q15MIN PRN PRN Reason: PAIN LEVEL > 6 Last Admin: 11/29/17 15:26 Dose: 0.5 mg Meperidine HCl (Demerol) 50 mg IV Q4HP PRN PRN Reason: PAIN LEVEL > 6 Last Admin: 11/30/17 22:06 Dose: 50 mg Admin: 11/30/17 10:43 Dose: 50 mg Pantoprazole Sodium (Protonix) 40 mg PO QAMAC [facility] Last Admin: 12/02/17 07:48 Dose: 40 mg Admin: 12/01/17 08:12 Dose: 40 mg Admin: 11/30/17 07:19 Dose: 40 mg Paroxetine HCl (Paxil) 40 mg PO DAILY [facility] Last Admin: 12/02/17 09:07 Dose: 40 mg Admin: 12/01/17 10:10 Dose: 40 mg Admin: 11/30/17 10:42 Dose: 40 mg Promethazine HCl (Phenergan) 12.5 mg IV Q4HP PRN PRN Reason: Pain Last Admin: 11/30/17 22:07 Dose: 12.5 mg Admin: 11/30/17 10:59 Dose: 12.5 mg Sodium Chloride (Saline Flush) 10 ml IV Q8 [facility] Last Admin: 12/02/17 07:49 Dose: 10 ml Admin: 12/01/17 20:37 Dose: 10 ml Admin: 12/01/17 14:25 Dose: Not Given Admin: 12/01/17 05:11 Dose: Not Given Admin: 11/30/17 20:00 Dose: Not Given Admin: 11/30/17 14:06 Dose: Not Given Admin: 11/30/17 05:25 Dose: Not Given Admin: 11/29/17 22:21 Dose: Not Given Tamsulosin HCl (Flomax) 0.4 mg PO DAILY [facility] Last Admin: 12/02/17 09:08 Dose: 0.4 mg Admin: 12/01/17 10:11 Dose: 0.4 mg Admin: 11/30/17 10:42 Dose: 0.4 mg Vitamin B Complex (Vitamin B Complex) 1 cap PO DAILY [facility] Last Admin: 12/02/17 09:08 Dose: 1 cap Admin: 12/01/17 10:10 Dose: 1 cap Admin: 11/30/17 10:41 Dose: 1 cap Zolpidem Tartrate (Ambien) 5 mg PO HSP PRN PRN Reason: Insomnia Last Admin: 12/01/17 21:23 Dose: 5 mg Shift Summary 12/02/17 04:37 Shift Summary by Deneen Petty up w/SBA around room, passing flatus but no BM for 2 days, was c/o upper epigastric cramping with juice at HS, only norco 10/325mg 2 tabs given t/o night which controlled pain well, ambien given for sleep but was only minimally effective, very [place], SL flushed and patent to RFA, jonas draining yellow urine with sediment, jonas will remain in place x2 weeks and pt will follow-up with Dr. Lezama outpatient, pt is understanding of this, urine culture results- no growth after 2 days, unsure if pt will d/c today or tuesday at this time Initialized on 12/02/17 04:37 - END OF NOTE
== END 2017-12-02 16:15 | disposition home or self-care (01) | DRG 698 ==
LOC: ED 12:28 → MEDSUR 17:17
PROVIDERS: ADMIT Family Medicine Adult Medicine; ATTEND Family Medicine Adult Medicine